=== PATIENT | male | born 1955 | race Caucasian/White ===

== ENCOUNTER 2018-06-25 17:42 | Emergency (ER) | payer OTHER ==
[~2018-06-25] VITALS: Ht 185.4 cm; Wt 86.0 kg
[2018-06-25] MEDS ORDERED: SIMV20TA2 PO (17:47)
[2018-06-25] MEDS ORDERED: ADACEL/BOOSTRIX VACCINE (DIPHTH/PERTUSS/ACELL/TETANUS)0.5ML SYR (90715) IM ONE (18:15)
--- NOTE | 2018-06-25 19:31 | REPVR ---
EXAM: CT Orbits Without Contrast EXAM DATE/TIME: 06/25/2018 6:38 PM CLINICAL HISTORY: 62 years old, male; Injury or trauma; Injury history: Laceration; Initial encounter; Cheek bone; Left; Without residual foreign body; Additional info: Trauma left orbit TECHNIQUE: Imaging protocol: Axial computed tomography images of the orbits without intravenous contrast. Coronal and sagittal reformatted images were created and reviewed. Radiation optimization: All CT scans at this facility use at least one of these dose optimization techniques: automated exposure control; mA and/or kV adjustment per patient size (includes targeted exams where dose is matched to clinical indication); or iterative reconstruction. COMPARISON: No relevant prior studies available. FINDINGS: Orbits: No acute intraorbital abnormality. Globes are unremarkable. Sinuses: Normal. No air-fluid levels. Bones/joints: No acute fracture seen. There is a chronic appearing nasal bone fracture. Soft tissues: Left periorbital soft tissue swelling. IMPRESSION: No acute facial bone fracture seen. Electronically signed by: Eli Issa On 06/25/2018 19:30:43 PM
[2018-06-25] MEDS ORDERED: ERYTHROMYCIN OPHTH OINT As Ordered ONE ×2 (21:31→23:02)
[2018-06-25] MEDS ORDERED: POVIDONE-IODINE 5% OPHTH PREP SOL 30ML As Ordered ONE (21:31)
[2018-06-25] MEDS ORDERED: AUGM875T28 PO (22:55)
[2018-06-25] MEDS ORDERED: ERYTHROMYCIN 2 % GEL 30GM TOP ONE (23:00)
[2018-06-25] MEDS ORDERED: AUGMENTIN 875 MG TAB PO ONE (23:00)
[2018-06-25 23:11] VITALS: BP 136/72
== END 2018-06-25 23:12 | disposition home or self-care (01) ==
LOC: M ED 17:42
DX: S01.112A Laceration without foreign body of left eyelid and periocular area, initial encounter (principal); W22.8XXA Striking against or struck by other objects, initial encounter; Y92.099 Unspecified place in other non-institutional residence as the place of occurrence of the external cause; Y93.9 Activity, unspecified; Y99.9 Unspecified external cause status; Z79.899 Other long term (current) drug therapy; E78.00 Pure hypercholesterolemia, unspecified

== ENCOUNTER 2020-06-23 11:21 | Emergency (ER) | payer MEDICARE, OTHER ==
[~2020-06-23] VITALS: Ht 185.4 cm; Wt 86.4 kg
[~2020-06-23 11:21] MED LIST: AUGM875T28 PO; SIMV20TA22 PO
[2020-06-23] MEDS ORDERED: METF500T13 (11:48)
[2020-06-23 11:59] LABS: BASO % 0.7 % (0.0-1.0); EOS # 0.1 10^3/uL (0.0-0.5); HEMATOCRIT 45.5 % (42.0-52.0); HEMOGLOBIN 15.1 g/dl (13.5-17.5); LYMPH # 1.6 10^3/uL (1.5-5.0); LYMPH % 35.3 % (24.0-44.0); MEAN CORPUSCULAR HEMOGLOBIN 31.7 pg (27.0-33.0); MEAN CORPUSCULAR HGB CONC 33.2 g/dl (32.0-36.5); MEAN CORPUSCULAR VOLUME 95.4 fl (80.0-96.0); MONO # 0.5 10^3/uL (0.0-0.8); MONO % 10.2 % (2.0-8.0); NEUTROPHILS # 2.3 10^3/uL (1.5-8.5); NEUTROPHILS % 51.6 % (36.0-66.0); PLATELET COUNT, AUTOMATED 241 10^3/uL (150-450); RED BLOOD COUNT 4.77 10^6/uL (4.30-6.10); WHITE BLOOD COUNT 4.5 10^3/uL (4.0-10.0)
--- NOTE | 2020-06-23 11:59 | REP ---
INDICATION: CHEST PAIN. COMPARISON: None. TECHNIQUE: Single portable AP view of the chest was performed. FINDINGS: There is no acute infiltrate or pulmonary edema. Lungs are clear. The heart is not significantly enlarged. The mediastinal silhouette is unremarkable. The visualized osseous structures are intact. IMPRESSION: No acute pulmonary disease. <Electronically signed by José Antonio Meeks > 06/23/20 [id number]
[2020-06-23 12:09] LABS: INR 0.96; PARTIAL THROMBOPLASTIN TIME 26.7 SECONDS (24.2-38.5)
[2020-06-23] MEDS ORDERED: ASPIRIN 81 MG CHEW TABLET PO ONE (12:10)
[2020-06-23 12:35] LABS: D-DIMER QUANT 285.8 ng/ml (<500)
[2020-06-23 12:37] LABS: ALBUMIN 4.4 GM/DL (3.2-5.2); ALT/SGPT 27 U/L (12-78); BILIRUBIN,DIRECT 0.1 MG/DL (0.0-0.2); BILIRUBIN,TOTAL 0.6 MG/DL (0.2-1.0); BLOOD UREA NITROGEN 22 MG/DL (7-18); CARBON DIOXIDE LEVEL 29 MEQ/L (21-32); CHLORIDE LEVEL 106 MEQ/L (98-107); CK-MB VALUE MASS < 1.0 NG/ML (<3.6); CPK CREATINE PHOSPHOKINASE 125 U/L (39-308); CREATININE FOR GFR 0.72 MG/DL (0.70-1.30); FREE T4 0.71 NG/DL (0.76-1.46); GLOMERULAR FILTRATION RATE > 60.0 (>49); GLUCOSE, FASTING 100 MG/DL (70-100); LIPASE 116 U/L (73-393); POTASSIUM SERUM 4.2 MEQ/L (3.5-5.1); SODIUM LEVEL 139 MEQ/L (136-145); TOTAL PROTEIN 8.1 GM/DL (6.4-8.2); TROPONIN I < 0.02 NG/ML (< 0.10)
[2020-06-23 16:05] LABS: CK-MB VALUE MASS < 1.0 NG/ML (<3.6); CPK CREATINE PHOSPHOKINASE 99 U/L (39-308); MB/CK RELATIVE INDEX 1.01 (< OR =4); TROPONIN I < 0.02 NG/ML (< 0.10)
[2020-06-23 17:00] VITALS: BP 134/67
--- NOTE | 2020-06-23 20:10 | ECGEPIP ---
[facility] - ED Test Date: 2020-06-23 Pat Name: HOLLY DOUGLASS Department: Room: - Gender: Male [employer]: VERONIKA : 1955 Requested By: ABDIRASHID Melo Order Number: [id number] Reading MD: Brandie Otto Measurements Intervals [place] Rate: 51 P: 49 CA: 150 QRS: -25 QRSD: 92 T: 30 QT: 438 QTc: 403 Interpretive Statements Sinus bradycardia Cannot rule out Anterior infarct , age undetermined No prior Electronically Signed on 06-23-2020 20:09:34 EDT by Brandie Otto
--- NOTE | 2020-06-23 20:14 | ECGEPIP ---
[facility] - ED Test Date: 2020-06-23 Pat Name: HOLLY DOUGLASS Department: Room: - Gender: Male [employer]: VERONIKA : 1955 Requested By: ABDIRASHID Melo Order Number: [id number] Reading MD: Brandie Otto Measurements Intervals [place] Rate: 56 P: 53 [place]: 140 QRS: -34 QRSD: 92 T: 37 QT: 430 QTc: 414 Interpretive Statements Sinus bradycardia Left axis deviation similar 06/23/20 Electronically Signed on 06-23-2020 20:14:01 EDT by Brandie Otto
== END 2020-06-23 17:08 | disposition home or self-care (01) ==
LOC: M ED 11:21
DX: R07.9 Chest pain, unspecified (principal); R42 Dizziness and giddiness; R00.1 Bradycardia, unspecified; E11.9 Type 2 diabetes mellitus without complications; E78.5 Hyperlipidemia, unspecified; Z87.891 Personal history of nicotine dependence; Z79.899 Other long term (current) drug therapy